=== PATIENT | male | born 1930 | race Caucasian/White ===

== ENCOUNTER 2017-05-19 15:13 | Inpatient (IN) | payer BC, MEDICARE, OTHER ==
[~2017-05-19] VITALS: Ht 152.4 cm; Wt 62.7 kg
[~2017-05-19 15:13] MED LIST: AMLO10TA80 PO; LISI10TA5 PO; SIMV20TA6 PO; TAMS0.4C31 PO
[2017-05-19 16:37] LABS: BASOPHILS % 0.6 % (0.0-2.0); EOSINOPHILS % 5.4 % (0.0-5.0); HEMATOCRIT. 36.4 % (42.0-52.0); HEMOGLOBIN. 12.5 g/dL (14.0-18.0); LYMPHOCYTES % 23.4 % (20.0-50.0); MEAN CORPUSCULAR HEMOGLOBIN 31.2 pg (28.0-32.0); MEAN CORPUSCULAR VOLUME 91.2 fL (80.0-94.0); MEAN PLATELET VOLUME 7.9 fl (7.4-10.4); MONOCYTES % 8.6 % (2.0-8.0); PLATELET 230 x1000/uL (130-400); RED CELL DISTRIBUTION WIDTH 13.9 % (11.6-14.6)
[2017-05-19 16:43] LABS: PROTHROMBIN TIME 10.7 sec (9.4-11.6)
[2017-05-19 16:52] LABS: CHLORIDE 104 mEq/L (98-107)
[2017-05-19 20:48] VITALS: BP 149/78
[2017-05-19] MEDS ORDERED: ESCI10TA54 PO (22:09)
[2017-05-19] MEDS ORDERED: MEMA10TA19 PO (22:09)
[2017-05-19] MEDS ORDERED: DOCU-150 PO ×2 (22:09)
[2017-05-19] MEDS ORDERED: ASPI-1159 PO (22:09)
[2017-05-19] MEDS ORDERED: SODIUM CHLORIDE 0.9% 1,000 ML IV SCH (23:00)
[2017-05-19] MEDS ORDERED: BISACODYL 5MG TABLET PO PRN (23:00)
[2017-05-19] MEDS ORDERED: MORPHINE SULFATE 4 MG/ML CPJ (NOT FOR IM USE) IV PRN (23:00)
[2017-05-19] MEDS ORDERED: LORAZEPAM 2MG/ML CPJ IV PRN (23:00)
[2017-05-19] MEDS ORDERED: TEMAZEPAM 15MG CAPSULE PO PRN (23:00)
[2017-05-19] MEDS: TAMSULOSIN HCL 0.4MG SR CAPSULE PO SCH (23:18)
[2017-05-19] MEDS: ASPIRIN 81MG EC TABLET PO SCH (23:47)
[2017-05-20] VITALS (7 sets, daily range): BP systolic 113–151; BP diastolic 59–78
[2017-05-20] MEDS: ASPIRIN 81MG EC TABLET PO SCH (08:30)
[2017-05-20] MEDS: HYDRALAZINE HCL 50MG TABLET PO SCH ×2 (08:30→21:13)
[2017-05-20] MEDS: ENOXAPARIN 30MG/0.3ML SYR SUBCUT SCH (08:31)
[2017-05-20] MEDS ORDERED: ASPIRIN 81MG EC TABLET PO SCH (09:00)
[2017-05-20] MEDS ORDERED: PANTOPRAZOLE SODIUM 40 MG/VIAL IV SCH (09:00)
[2017-05-20] MEDS: SODIUM CHLORIDE 0.9% 1,000 ML IV SCH (18:14)
[2017-05-20] MEDS: FUROSEMIDE 40MG/4ML VIAL IVP SCH (18:20)
[2017-05-20] MEDS: TAMSULOSIN HCL 0.4MG SR CAPSULE PO SCH (21:13)
[2017-05-20] MEDS: PANTOPRAZOLE 40MG DR TABLET PO SCH (21:13)
[2017-05-21 04:00] VITALS: BP 115/63
[2017-05-21 06:29] LABS: CHLORIDE 102 mEq/L (98-107)
[2017-05-21 08:00] VITALS: BP 174/66
[2017-05-21] MEDS: PANTOPRAZOLE 40MG DR TABLET PO SCH ×2 (08:24→22:06)
[2017-05-21] MEDS: ENOXAPARIN 30MG/0.3ML SYR SUBCUT SCH (08:24)
[2017-05-21] MEDS: HYDRALAZINE HCL 50MG TABLET PO SCH ×2 (08:24→22:06)
[2017-05-21] MEDS: FUROSEMIDE 40MG/4ML VIAL IVP SCH (08:24)
[2017-05-21] MEDS: ASPIRIN 81MG EC TABLET PO SCH (08:24)
[2017-05-21 12:00] VITALS: BP 128/62
[2017-05-21 16:00] VITALS: BP 108/51
[2017-05-21] MEDS: SODIUM CHLORIDE 0.9% 1,000 ML IV SCH (17:37)
[2017-05-21 20:00] VITALS: BP 145/75
[2017-05-21 21:27] LABS: VITAMIN B12 SERUM >2000 pg/mL pg/mL (211-911)
[2017-05-21] MEDS: TAMSULOSIN HCL 0.4MG SR CAPSULE PO SCH (22:06)
[2017-05-21] MEDS: LAMOTRIGINE 25MG TABLET PO SCH (22:08)
[2017-05-22] VITALS: BP 110/60
[2017-05-22 04:00] VITALS: BP 109/61
[2017-05-22] MEDS ORDERED: LEVOTHYROXINE SODIUM 25MCG TABLET PO SCH (07:40)
[2017-05-22 08:00] VITALS: BP 132/65
[2017-05-22] MEDS: ASPIRIN 81MG EC TABLET PO SCH (08:23)
[2017-05-22] MEDS: FUROSEMIDE 40MG/4ML VIAL IVP SCH (08:26)
[2017-05-22] MEDS: PANTOPRAZOLE 40MG DR TABLET PO SCH (08:26)
[2017-05-22] MEDS: LAMOTRIGINE 25MG TABLET PO SCH (08:26)
[2017-05-22] MEDS: HYDRALAZINE HCL 50MG TABLET PO SCH (08:26)
[2017-05-22] MEDS: ENOXAPARIN 30MG/0.3ML SYR SUBCUT SCH (08:27)
[2017-05-22 12:00] VITALS: BP 128/74
[2017-05-22 13:30] LABS: CLARITY URINE CLEAR (CLEAR); COLOR URINE YELLOW (YELLOW); KETONES URINE NEGATIVE (NEGATIVE); LEUKOCYTE ESTERASE URINE NEGATIVE (NEGATIVE); NITRITE URINE NEGATIVE (NEGATIVE); OCCULT BLOOD URINE NEGATIVE (NEGATIVE); PROTEIN URINE NEGATIVE (NEGATIVE); SPECIFIC GRAVITY URINE 1.015 (1.005-1.030); UROBILINOGEN URINE 0.2 E.U./dL (0.2-1.0)
[2017-05-22 16:00] VITALS: BP 120/64
[2017-05-22 17:06] VITALS: BP 128/74
== END 2017-05-22 17:20 | disposition home health service (06) | DRG 101 ==
LOC: ER 15:13 → 7WST 17:13 → OBSVTOIN 17:13 → INTOOBSV 17:13 → EDBEDREQTM 17:15 → EDBEDREQ 17:15 → ENRESERV 19:34 → 7WST 21:39
PROVIDERS: ADMIT Internal Medicine; ATTEND Internal Medicine
DX: R56.9 Unspecified convulsions (principal); G30.9 Alzheimer's disease, unspecified; F02.80 Dementia in other diseases classified elsewhere, unspecified severity, without behavioral disturbance, psychotic disturbance, mood disturbance, and anxiety; E03.9 Hypothyroidism, unspecified; I10 Essential (primary) hypertension; N40.0 Benign prostatic hyperplasia without lower urinary tract symptoms; E78.00 Pure hypercholesterolemia, unspecified; Z79.82 Long term (current) use of aspirin; Z79.899 Other long term (current) drug therapy
CPT/HCPCS: 36415; 70544; 70553; 71045; 80061; 82607; 83880; 84443; 84484; 93005; 93306; 93880; 97116; 97162; 97530; 99285; C9113; J1650; J1940; J7030

== ENCOUNTER 2017-07-26 01:00 | Emergency (ER) | payer MEDICARE ==
[~2017-07-26] VITALS: Ht 154.9 cm; Wt 56.0 kg
[~2017-07-26 01:00] MED LIST changes: +ASPI-1159 PO; +DOCU-150 PO; +ESCI10TA54 PO; +MEMA10TA19 PO
[2017-07-26] MEDS ORDERED: ALBUTEROL (0.083%) 2.5MG/3ML NEB HHN STA (01:29)
[2017-07-26] MEDS ORDERED: IPRATROPIUM BROMIDE (0.02%) 0.5MG/2.5ML NEB HHN STA (01:29)
[2017-07-26] MEDS ORDERED: ASPIRIN 81MG TABLET PO ONE (01:30)
[2017-07-26] MEDS ORDERED: MAGNESIUM 2 G PREMIX 50 ML IV ONE (01:30)
[2017-07-26] MEDS ORDERED: NITROGLYCERIN OINT 1GM/INCH UDPKT TD ONE (01:30)
[2017-07-26 02:11] LABS: BASOPHILS % 0.6 % (0.0-2.0); HEMATOCRIT. 35.8 % (42.0-52.0); HEMOGLOBIN. 12.1 g/dL (14.0-18.0); LYMPHOCYTES % 22.8 % (20.0-50.0); MEAN CORPUSCULAR HEMOGLOBIN 30.5 pg (28.0-32.0); MEAN CORPUSCULAR VOLUME 90.1 fL (80.0-94.0); MEAN PLATELET VOLUME 8.2 fl (7.4-10.4); MONOCYTES % 10.1 % (2.0-8.0); NEUTROPHILS % 59.5 % (40.0-76.0); PLATELET 216 x1000/uL (130-400); RED BLOOD CELL COUNT 3.97 mill/uL (4.7-6.1); RED CELL DISTRIBUTION WIDTH 14.3 % (11.6-14.6)
[2017-07-26 02:13] LABS: CHLORIDE 103 mEq/L (98-107)
[2017-07-26 02:16] LABS: PROTHROMBIN TIME 10.5 sec (9.4-11.6)
[2017-07-26 02:17] LABS: ETHANOL BLOOD < 10 mg/dL
[2017-07-26 03:58] VITALS: BP 141/47
== END 2017-07-26 04:04 | disposition home or self-care (01) ==
LOC: ER 01:00 → CANBEDREQ 08:06
DX: J44.1 Chronic obstructive pulmonary disease with (acute) exacerbation (principal); N40.0 Benign prostatic hyperplasia without lower urinary tract symptoms; F03.90 Unspecified dementia, unspecified severity, without behavioral disturbance, psychotic disturbance, mood disturbance, and anxiety; E78.00 Pure hypercholesterolemia, unspecified; E11.9 Type 2 diabetes mellitus without complications; R56.9 Unspecified convulsions; Z79.82 Long term (current) use of aspirin; Z98.890 Other specified postprocedural states
CPT/HCPCS: 36415; 71045; 80053; 83605; 83690; 83880; 84484; 85025; 85610; 87040; 93005; 94640; 99285; G0482; J3475; J7611